=== PATIENT | male | born 1950 | race American Indian/Alaskan Native ===

== ENCOUNTER 2016-10-07 08:09 | Outpatient (CLI) | payer MEDICARE, OTHER ==
[2016-10-07] MEDS ORDERED: XYLOCAINE TOPICAL 4% TP ONE ×2 (08:51→10:08)
== END 2016-10-07 08:10 | disposition home or self-care (01) ==
LOC: WOUND 08:09
PROVIDERS: ATTEND Nurse Practitioner
DX: E11.622 Type 2 diabetes mellitus with other skin ulcer (principal); I70.293 Other atherosclerosis of native arteries of extremities, bilateral legs; L97.811 Non-pressure chronic ulcer of other part of right lower leg limited to breakdown of skin; I10 Essential (primary) hypertension; M19.90 Unspecified osteoarthritis, unspecified site; Z87.891 Personal history of nicotine dependence; Z94.0 Kidney transplant status
CPT/HCPCS: 11042; G0463

== ENCOUNTER 2016-10-11 13:00 | Outpatient (CLI) | payer MEDICARE, OTHER ==
[2016-10-11] MEDS ORDERED: XYLOCAINE TOPICAL 2% TP ONE ×2 (13:21→15:32)
== END 2016-10-11 13:01 | disposition home or self-care (01) ==
LOC: WOUND 13:00
PROVIDERS: ATTEND Internal Medicine
DX: E11.622 Type 2 diabetes mellitus with other skin ulcer (principal); E11.22 Type 2 diabetes mellitus with diabetic chronic kidney disease; L97.811 Non-pressure chronic ulcer of other part of right lower leg limited to breakdown of skin; I12.9 Hypertensive chronic kidney disease with stage 1 through stage 4 chronic kidney disease, or unspecified chronic kidney disease; N18.4 Chronic kidney disease, stage 4 (severe); M19.90 Unspecified osteoarthritis, unspecified site; Z94.0 Kidney transplant status; Z87.891 Personal history of nicotine dependence

== ENCOUNTER 2016-10-11 13:27 | Outpatient (CLI) | payer MEDICARE, OTHER | END 2016-10-11 13:28 | disposition home or self-care (01) | LOC: VAS 13:27 → WOUND 13:27 → VAS 13:28 | PROVIDERS: ATTEND Internal Medicine | DX: E11.622 Type 2 diabetes mellitus with other skin ulcer (principal); L97.811 Non-pressure chronic ulcer of other part of right lower leg limited to breakdown of skin; E11.22 Type 2 diabetes mellitus with diabetic chronic kidney disease; I12.9 Hypertensive chronic kidney disease with stage 1 through stage 4 chronic kidney disease, or unspecified chronic kidney disease; N18.9 Chronic kidney disease, unspecified; M19.90 Unspecified osteoarthritis, unspecified site; Z87.891 Personal history of nicotine dependence; Z94.0 Kidney transplant status ==

== ENCOUNTER 2016-10-28 08:16 | Outpatient (CLI) | payer MEDICARE, OTHER | END 2016-10-28 08:17 | disposition home or self-care (01) | LOC: WOUND 08:16 | PROVIDERS: ATTEND Nurse Practitioner | DX: I87.311 Chronic venous hypertension (idiopathic) with ulcer of right lower extremity (principal); E11.622 Type 2 diabetes mellitus with other skin ulcer; L97.811 Non-pressure chronic ulcer of other part of right lower leg limited to breakdown of skin; I70.293 Other atherosclerosis of native arteries of extremities, bilateral legs; G47.39 Other sleep apnea; F15.90 Other stimulant use, unspecified, uncomplicated; Z94.0 Kidney transplant status; Z87.891 Personal history of nicotine dependence | CPT/HCPCS: 99213; G0463 ==

== ENCOUNTER 2016-12-16 12:13 | Outpatient (CLI) | payer MEDICARE, OTHER ==
--- NOTE | 2016-12-16 13:58 | XRay Report ---
METASTATIC BONE SURVEY: INDICATION: Monoclonal gammopathy of uncertain sign. Evaluate for possible myeloma. COMPARISON: None similar. FINDINGS: AP and lateral views of the skull, entire spine as also frontal projections of the chest, pelvis and bilateral humerus and femur obtained. No definite suspicious bony lesions. Small radiopaque dental filling. Numerous facial plate and screw hardware. Sternotomy wires. SVC stents. Few pelvic surgical clips about the SI joints. Atherosclerotic vascular calcifications noted in the pelvis and along the imaged thighs. Right arm dialysis fistula related changes. Moderate to severe C5-C6 disc narrowing and mild spurring. Mild upper lumbar spurring as well. Right knee degenerative changes more than the left, including medial knee compartment narrowing and spurring. Clear imaged lungs. Right hemidiaphragm mildly elevated. CONCLUSION: No gross bony metastatic disease identified with various bony degenerative changes and iatrogenic findings, as above. Please correlate. Thank you for the opportunity to participate in this patient's care.
== END 2016-12-16 12:14 | disposition home or self-care (01) ==
LOC: XRAY 12:13
PROVIDERS: ATTEND Internal Medicine Hematology & Oncology
DX: D47.2 Monoclonal gammopathy (principal); E66.3 Overweight; M17.0 Bilateral primary osteoarthritis of knee; M53.82 Other specified dorsopathies, cervical region; M53.86 Other specified dorsopathies, lumbar region; J98.6 Disorders of diaphragm; R19.09 Other intra-abdominal and pelvic swelling, mass and lump
CPT/HCPCS: 77074

== ENCOUNTER 2017-01-13 17:04 | Emergency (ER) | payer MEDICARE, OTHER ==
[2017-01-13 17:55] VITALS: BP 166/79
[2017-01-13 18:24] LABS: Basophils % (Auto) 0.3 % (0.0-1.8); Eosinophils % (Auto) 1.2 % (0.0-4.3); Mean Corpuscular HGB Conc 30 % (32-34); Mean Corpuscular Volume 71 fl (84-94); Platelet Count 124 K/mm3 (140-440); Red Cell Distribution Width 18.7 % (13.2-15.2); White Blood Count 6.5 K/mm3 (4.5-11.0)
[2017-01-13 18:27] LABS: Hematocrit 46.1 % (35.5-45.6); Mean Corpuscular Hemoglobin 22 pg (28-32)
[2017-01-13 18:39] LABS: BUN/Creatinine Ratio 17.5; Calcium 9.7 mg/dL (8.4-10.2); Chloride 105.1 mmol/L (98-107)
--- NOTE | 2017-01-14 10:48 | ED Elopement Review ---
ED Pt Elopement review - Results review Lab results: Laboratory Tests 01/13/17 01/13/17 01/13/17 17:57 17:57 21:38 WBC 6.5 RBC 6.50 H Hgb 14.0 Hct 46.1 H MCV 71 L MCH 22 L MCHC 30 L RDW 18.7 H Plt Count 124 L Lymph % (Auto) 14.3 Jerome % (Auto) 11.8 H Eos % (Auto) 1.2 Baso % (Auto) 0.3 Lymph # 0.9 L Jerome # 0.8 Eos # 0.1 Baso # 0.0 Seg Neutrophils % 72.4 H Seg Neutrophils # 4.7 Sodium 139 Potassium 5.0 Chloride 105.1 Carbon Dioxide 21 L Anion Gap 18 BUN 28 H Creatinine 1.6 H Estimated GFR 53 BUN/Creatinine Ratio 17.50 Glucose 85 Calcium 9.7 Troponin T 0.028 0.025 - Call Back decision Pt Call Back Decision: Pt to F/U with PMD
== END 2017-01-13 22:15 | disposition left against medical advice (07) ==
LOC: ED 17:04
DX: E87.5 Hyperkalemia (principal); Z53.21 Procedure and treatment not carried out due to patient leaving prior to being seen by health care provider
CPT/HCPCS: 36415; 80048; 84484; 85025; 93005; 93010

== ENCOUNTER 2021-10-28 10:09 | Emergency (ER) | payer MEDICARE, OTHER ==
--- NOTE | 2021-10-28 11:35 | Emergency Department Report ---
<CHELSIE SPAULDING L - Last Filed: 10/28/21 11:31> ED Fall HPI - General Chief Complaint: Fall Stated Complaint: PAIN/SHOULDER/WRIST Source: patient Mode of arrival: Wheelchair - History of Present Illness Initial Comments: 70-year-old male presents to the ED complaining of left forearm , left hand and right ankle pain after a syncopal episode on Tuesday. states that patient had a hypoglycemic episode. stated that EMS came out and treated patient. Since the episode patient is unable to ambulate on right ankle and noticed left forearm in left hand swollen. Also patient has moderate edema in the right ankle. Patient is unable to bear weight at present time. Patient is currently in a wheelchair. No ecchymosis is noted. - Related Data Home Medications Medication Instructions Recorded Confirmed Last Taken Atorvastatin [Lipitor] 40 mg PO QHS 05/29/13 05/29/13 09/03/15 Esomeprazole Magnesium [NexIUM] 40 mg PO QDAY 05/29/13 05/29/13 06/09/14 Insulin Aspart (Nf) [NovoLOG 100 0 unit SQ AC 05/29/13 05/29/13 09/03/15 UNITS/ML VIAL] Insulin Detemir [Levemir Flexpen] 100 unit SQ 05/29/13 05/29/13 09/03/15 Multivitamin [Multi-Vitamin Daily] 1 each PO 05/29/13 05/29/13 06/09/14 Prednisone [predniSONE 5 mg (6-Day 5 mg PO QDAY 05/29/13 05/29/13 09/04/15 Pack, 21 Tabs)] Sodium Bicarbonate 650 mg PO BID 05/29/13 05/29/13 06/09/14 Tacrolimus [Prograf] 1 mg PO Q12H 05/29/13 05/29/13 09/04/15 06:00 Warfarin Sodium [Coumadin] 7.5 mg PO 05/29/13 05/29/13 06/09/14 Previous Rx's Medication Instructions Recorded Last Taken Type methOCARBAMOL [Robaxin TAB] 500 mg PO TID #15 tablet 05/29/13 06/09/15 Rx traMADoL [Ultram 50 MG tab] 50 mg PO Q4HR PRN #14 tablet 05/29/13 08/30/15 Rx Gentamicin 0.3% Ophth Soln 2 drops OP Q4H #1 bottle 08/10/14 06/09/14 Rx HYDROcodone/APAP 5-325 [Llano 1 each PO Q4HR PRN #15 tablet 05/25/15 08/29/15 Rx 5-325 mg TAB] traMADoL [Ultram 50 MG tab] 50 mg PO Q6H PRN #20 tablet 06/06/16 Unknown Rx Allergies Allergy/AdvReac Type Severity Reaction Status Date / Time shellfish derived Allergy Rash Verified 10/07/16 08:58 Iodinated Contrast Media AdvReac Unknown Verified 10/07/16 08:58 [Iodinated Contrast Media - IV Dye] ED Past Medical Hx - Past Medical History Hx Hypertension: Yes Hx Diabetes: Yes Additional medical history: high chol. CAD, Uses CPAP machine - Surgical History Hx Coronary Stent: Yes Hx Open Heart Surgery: Yes Additional Surgical History: kidney transplant and open heart in 2013 - Social History Smoking Status: Never Smoker Substance Use Type: None - Medications Home Medications: Home Medications Medication Instructions Recorded Confirmed Last Taken Type Atorvastatin [Lipitor] 40 mg PO QHS 05/29/13 05/29/13 09/03/15 History Esomeprazole Magnesium [NexIUM] 40 mg PO QDAY 05/29/13 05/29/13 06/09/14 History Insulin Aspart (Nf) [NovoLOG 100 0 unit SQ AC 05/29/13 05/29/13 09/03/15 History UNITS/ML VIAL] Insulin Detemir [Levemir Flexpen] 100 unit SQ 05/29/13 05/29/13 09/03/15 History Multivitamin [Multi-Vitamin Daily] 1 each PO 05/29/13 05/29/13 06/09/14 History Prednisone [predniSONE 5 mg (6-Day 5 mg PO QDAY 05/29/13 05/29/13 09/04/15 History Pack, 21 Tabs)] Sodium Bicarbonate 650 mg PO BID 05/29/13 05/29/13 06/09/14 History Tacrolimus [Prograf] 1 mg PO Q12H 05/29/13 05/29/13 09/04/15 06:00 History Warfarin Sodium [Coumadin] 7.5 mg PO 05/29/13 05/29/13 06/09/14 History methOCARBAMOL [Robaxin TAB] 500 mg PO TID #15 tablet 05/29/13 06/09/15 Rx traMADoL [Ultram 50 MG tab] 50 mg PO Q4HR PRN #14 tablet 05/29/13 08/30/15 Rx Gentamicin 0.3% Ophth Soln 2 drops OP Q4H #1 bottle 08/10/14 06/09/14 Rx HYDROcodone/APAP 5-325 [Llano 1 each PO Q4HR PRN #15 tablet 05/25/15 08/29/15 Rx 5-325 mg TAB] traMADoL [Ultram 50 MG tab] 50 mg PO Q6H PRN #20 tablet 06/06/16 Unknown Rx ED Physical Exam - General Limitations: No Limitations ED Disposition Clinical Impression: Fall, Left wrist sprain, Right ankle sprain, Chronic renal failure Disposition: HOME / SELF CARE / HOMELESS Condition: Stable Instructions: Ankle Sprain Referrals: [facility] [Other] - 3-5 Days <MYA CANAS - Last Filed: 10/28/21 16:59> ED Review of Systems ROS: Stated complaint: PAIN/SHOULDER/WRIST Other details as noted in HPI Constitutional: denies: chills, fever Eyes: denies: eye pain, eye discharge, vision change ENT: denies: ear pain, throat pain Respiratory: denies: cough, shortness of breath, wheezing Cardiovascular: denies: chest pain, palpitations Endocrine: no symptoms reported Gastrointestinal: denies: abdominal pain, nausea, diarrhea Genitourinary: denies: urgency, dysuria Musculoskeletal: denies: back pain, joint swelling, arthralgia Skin: denies: rash, lesions Neurological: denies: headache, weakness, paresthesias Psychiatric: denies: anxiety, depression Hematological/Lymphatic: denies: easy bleeding, easy bruising ED Physical Exam - General General appearance: alert, in no apparent distress - Head Head exam: Present: atraumatic, normocephalic - Eye Eye exam: Present: normal appearance - ENT ENT exam: Present: mucous membranes moist - Neck Neck exam: Present: normal inspection - Respiratory Respiratory exam: Present: normal lung sounds bilaterally. Absent: respiratory distress - Cardiovascular Cardiovascular Exam: Present: regular rate, normal rhythm. Absent: systolic murmur, diastolic murmur, rubs, gallop - GI/Abdominal GI/Abdominal exam: Present: soft, normal bowel sounds - Rectal Rectal exam: Present: deferred - Extremities Exam Extremities exam: Present: normal inspection - Expanded Upper Extremity Exam Left Forearm Wrist exam: Present: tenderness, swelling - Expanded Lower Extremity Exam Right Lower Leg exam: Present: swelling - Back Exam Back exam: Present: normal inspection - Neurological Exam Neurological exam: Present: alert, oriented X3 - Psychiatric Psychiatric exam: Present: normal affect, normal mood - Skin Skin exam: Present: warm, dry, intact, normal color. Absent: rash ED Course Vital Signs 10/28/21 10:21 Temperature 99.1 F Pulse Rate 91 H Respiratory 20 Rate Blood Pressure 131/66 O2 Sat by Pulse 96 Oximetry ED Medical Decision Making - Lab Data Result diagrams: 10/28/21 15:29 - Radiology Data Radiology results: report reviewed, image reviewed - Medical Decision Making work up shwoed crf head ct , x rays were negative vss no distress Critical care attestation.: If time is entered above; I have spent that time in minutes in the direct care of this critically ill patient, excluding procedure time. ED Disposition Is pt being admited?: No Does the pt Need Aspirin: No
--- NOTE | 2021-10-28 12:12 | Emergency Department Report ---
Chief Complaint: Skin Rash Stated Complaint: PAIN/SHOULDER/WRIST - Exam Vital Signs: Vital Signs 10/28/21 10:21 Temperature 99.1 F Pulse Rate 91 H Respiratory 20 Rate Blood Pressure 131/66 O2 Sat by Pulse 96 Oximetry MSE screening note: Focused history and physical exam performed. Due to findings the following was ordered: ED Disposition for MSE Condition: Stable Referrals: [facility] [Other] - 3-5 Days
--- NOTE | 2021-10-28 13:13 | XRay Report ---
Left hand 3 views INDICATION: Pain FINDINGS: MCP joints, PIP and DIP joints show joint space narrowing. PFB degenerative change most sig nificant in the long finger. Degenerative changes small erosions throughout the carpal bones with cade e widening of the scapholunate joint space. Diffuse soft tissue swelling throughout the hand. Advance d degenerative change and base of thumb. Erosions along the margins of the joint spaces. IMPRESSION: Diffuse soft tissue swelling is seen throughout the hand. Degenerative changes seen throughout the MC P joints and PIP joints DIP joints and carpal bones was areas of erosive arthropathy no displaced fra ctures seen. Signer Name: Jakub Martinez MD Signed: 10/28/2021 1:09 PM Workstation Name: [id number]
--- NOTE | 2021-10-28 13:13 | XRay Report ---
RIGHT ANKLE 2 VIEW(S) INDICATION / CLINICAL INFORMATION: fall COMPARISON: None available. FINDINGS: BONES / JOINT(S): No acute fracture or subluxation. Severe degenerative change of the ankle, hindfoot and midfoot. SOFT TISSUES: Vascular calcification. Mild soft tissue swelling about the ankle joint. ADDITIONAL FINDINGS: None. Signer Name: Kleber Hooper MD Signed: 10/28/2021 1:09 PM Workstation Name: [email or web address]
--- NOTE | 2021-10-28 13:17 | XRay Report ---
LEFT FOREARM 3 VIEW INDICATION / CLINICAL INFORMATION: fall. COMPARISON: None available. FINDINGS: BONES / JOINT(S): No acute fracture or subluxation. No significant arthritis. SOFT TISSUES: Scattered soft tissue calcifications are likely phleboliths. There is some soft tissues along the dorsal forearm. ADDITIONAL FINDINGS: None. IMPRESSION: 1. No acute findings. Signer Name: Thomas Vareal MD Signed: 10/28/2021 1:13 PM Workstation Name: [email or web address]
--- NOTE | 2021-10-28 14:51 | XRay Report ---
CHEST 1 VIEW 10/28/2021 1:35 PM INDICATION / CLINICAL INFORMATION: Fall. COMPARISON: None available. FINDINGS: SUPPORT DEVICES: None. HEART / MEDIASTINUM: Normal heart size. Previous median sternotomy. There appears to be a stent in th e superior vena cava as well. LUNGS / PLEURA: No significant pulmonary or pleural abnormality. No pneumothorax. ADDITIONAL FINDINGS: No significant additional findings. IMPRESSION: 1. No acute findings. Signer Name: Thomas Varela MD Signed: 10/28/2021 2:42 PM Workstation Name: [email or web address]
--- NOTE | 2021-10-28 15:16 | Cat Scan Report ---
CT head/brain wo con INDICATION: Fall. TECHNIQUE: Routine CT head. All CT scans at this location are performed using CT dose reduction for A TONO by means of automated exposure control. COMPARISON: None. FINDINGS: Intracranial: Durant-white matter differentiation is maintained. No intracranial hemorrhage. No extra a xial collection. No hydrocephalus. No herniation. Remote left putamen lacunar infarction. Sinuses: Paranasal sinuses and mastoid air cells are essentially clear. Orbits: Globes are intact. Calvarium: Prior fixation of maxillary sinus tucker. No acute fracture. IMPRESSION: 1. No acute intracranial abnormality. Signer Name: Jake Pagan MD Signed: 10/28/2021 3:12 PM Workstation Name: [id number]
[2021-10-28 16:04] LABS: INR 1.21 (0.87-1.13)
[2021-10-28 16:16] LABS: Albumin 3.5 g/dL (3.9-5); Calcium 8.7 mg/dL (8.4-10.2)
[2021-10-28 16:17] LABS: Uric Acid 5.4 mg/dL (3.5-7.6)
[2021-10-28 16:29] LABS: Chol/HDL Ratio 3.56 %
[2021-10-28 17:24] LABS: Basophils % (Auto) 0.2 % (0.0-1.8); Eosinophils % (Auto) 0.5 % (0.0-4.3); Hemoglobin 8.8 gm/dl (11.8-15.2); Lymphocytes # (Auto) 0.8 K/mm3 (1.2-5.4); Lymphocytes % (Auto) 9.1 % (13.4-35.0); Mean Corpuscular HGB Conc 33 % (32-34); Mean Corpuscular Volume 74 fl (84-94); Monocytes # (Auto) 0.7 K/mm3 (0.0-0.8); Platelet Count 205 K/mm3 (140-440); Red Blood Count 3.65 M/mm3 (3.65-5.03)
[2021-10-28 17:25] LABS: Red Cell Distribution Width 22.1 % (13.2-15.2)
[2021-10-28 17:31] VITALS: BP 141/88
== END 2021-10-28 17:31 | disposition home or self-care (01) ==
LOC: ED 10:09
DX: S63.502A Unspecified sprain of left wrist, initial encounter (principal); S93.401A Sprain of unspecified ligament of right ankle, initial encounter; N18.9 Chronic kidney disease, unspecified; I10 Essential (primary) hypertension; E11.9 Type 2 diabetes mellitus without complications; Z91.013 Allergy to seafood; W19.XXXA Unspecified fall, initial encounter; Y93.89 Activity, other specified; Y92.89 Other specified places as the place of occurrence of the external cause; Y99.8 Other external cause status
CPT/HCPCS: 36415; 70450; 71045; 80053; 80061; 82550; 83615; 83880; 84484; 84550; 85025; 85610; 99284